=== PATIENT | female | born 1995 | race Hispanic/Latino ===

== ENCOUNTER 2022-08-26 22:32 | Emergency (ER) | payer OTHER ==
[~2022-08-26] VITALS: Ht 152.4 cm; Wt 81.6 kg
[2022-08-26] MEDS ORDERED: IBUPROFEN 600 MG TABLET PO ONE (23:00)
[2022-08-26] MEDS ORDERED: ACETAMINOPHEN 500 MG TABLET PO ONE (23:00)
[2022-08-26 23:12] LABS: APPEARANCE,URINE CLEAR (CLEAR); BILIRUBIN,URINE NEGATIVE (NEGATIVE); COLOR,URINE LIGHT-YELLOW (YELLOW); GLUCOSE, URINE (UA) NEGATIVE (NEGATIVE); KETONES,URINE NEGATIVE (NEGATIVE); LEUKOCYTE ESTERASE ,URINE NEGATIVE Leu/uL (NEGATIVE); NITRATE,URINE NEGATIVE (NEGATIVE); OCCULT BLOOD,URINE MODERATE (NEGATIVE); PH,URINE 5.5 (5.0-8.0); PROTEIN,URINE NEGATIVE (NEGATIVE); UROBILINOGEN,URINE 0.2 mg/dL (0.2-1.0)
[2022-08-26 23:16] LABS: MUCUS,URINE RARE LPF (None Seen); SQUAMOUS EPITHELIAL CELL,UR RARE /HPF (0-2)
[2022-08-26 23:20] LABS: HCG,QUALITATIVE URINE NEGATIVE (NEGATIVE)
[2022-08-26] MEDS ORDERED: ONDANSETRON ODT 4MG TAB SL ONE (23:30)
[2022-08-26] MEDS ORDERED: NIRM1TAB PO (23:40)
[2022-08-26] MEDS ORDERED: IBUP-1493 PO (23:40)
[2022-08-27] MEDS ORDERED: 0.9%NACL 1000ML 2,000 ML IV ONE (00:30)
[2022-08-27 01:07] VITALS: BP 138/76
== END 2022-08-27 01:22 | disposition home or self-care (01) ==
LOC: EDH 22:32
DX: U07.1 COVID-19 (principal); J45.909 Unspecified asthma, uncomplicated
CPT/HCPCS: 99284; 87635; 87804 ×2; 81001; 81025; 96360; C9803; J7030